=== PATIENT | male | born 1945 ===

== ENCOUNTER 2017-03-24 17:52 | Inpatient (IN) | payer SELFPAY ==
[2017-03-24 17:56] VITALS: BMI 25.8
[2017-03-24] MEDS ORDERED: ASPIRIN 81 MG CHEWABLE TABLETS PO ONE (18:07)
[2017-03-24] MEDS ORDERED: ASPIRIN 81 MG CHEWABLE TABLETS ONE (18:25)
[2017-03-24 18:38] LABS: BASOPHIL 1.6 % (0-2.0); EOSINOPHIL 1.9 % (0-4.5); MCH 22.4 pg (25.7-33.7); MCHC 30.7 g/dl (32.0-35.9); MEAN CELL VOLUME 72.8 fl (80-96); MEAN PLT VOLUME 7.6 fl (7.5-11.1); NEUTROPHILS 71.1 % (42.8-82.8); PLATELET COUNT 372 K/MM3 (134-434); RDW 17.5 % (11.9-15.9); WHITE BLOOD COUNT 7.7 K/mm3 (4.0-10.0)
[2017-03-24 19:03] LABS: ALBUMIN 3.7 g/dl (3.4-5.0); ANION GAP 11 (8-16); BILIRUBIN,TOTAL 0.7 mg/dL (0.2-1.0); CALCIUM 8.9 mg/dL (8.5-10.1); CO2 24 mmol/L (21-32); CREATININE 1.4 mg/dL (0.7-1.3); GLUCOSE,RANDOM 145 mg/dL (74-106); MAGNESIUM 2.3 mg/dL (1.8-2.4); SGOT/AST 17 U/L (15-37); SGPT/ALT 26 U/L (12-78); TOT PROT 7.5 g/dl (6.4-8.2)
[2017-03-24 19:06] LABS: ALK PHOS 121 U/L (45-117); CPK 173 IU/L (39-308); TROPONIN I 0.16 ng/ml (0.00-0.05)
[2017-03-24 19:20] LABS: INR 1.13 (0.82-1.09); PROTHROMBIN TIME (PATIENT) 12.5 SEC (9.98-11.88)
--- NOTE | 2017-03-24 19:54 | PDOC ---
History of Present Illness <Tevin Mathur - Last Filed: 03/24/17 21:36> - General History Source: Patient Exam Limitations: No Limitations <Guilherme Lo - Last Filed: 03/24/17 22:01> - General Chief Complaint: Chest Pain Stated Complaint: CHEST PAIN Time Seen by Provider: 03/24/17 18:47 - History of Present Illness Initial Comments: 03/24/17 20:03 71y M hx of htn, hl, presents with chest pain. Pt notes the chest pain has heraclio intermittent for the past week, seems to be worse in the evening and when he is abmulating. there is associated sob, denies any n/v, diaphoresis. no associated hemoptysis, leg swelling, numbness/tingling/weakness. pt went to his pmd today who sent him to the ED for evaluation. no prior cardiac ihstory. pt notes his pain is mild currently but has been much worse. (Guilherme Lo) Past History <Tevin Mathur - Last Filed: 03/24/17 21:36> - Past Medical History Diabetes: Yes HTN: Yes Hypercholesterolemia: Yes - Suicide/Smoking/Psychosocial Hx Smoking History: Never smoked Hx Alcohol Use: No Drug/Substance Use Hx: No Substance Use Type: None <Guilherme Lo - Last Filed: 03/24/17 22:01> - Past Medical History Allergies/Adverse Reactions: Allergies Allergy/AdvReac Type Severity Reaction Status Date / Time No Known Allergies Allergy Verified 03/24/17 17:54 Home Medications: Ambulatory Orders Ibuprofen [Advil -] 200 mg PO BID 03/24/17 Metformin HCl 500 mg PO BID 03/24/17 Vitamin B Complex [B Complex] 1 each PO DAILY 03/24/17 Review of Systems <Tevin Mathur - Last Filed: 03/24/17 21:36> - Review of Systems Able to Perform ROS?: Yes <Guilherme Lo - Last Filed: 03/24/17 22:01> - Review of Systems Comments:: 03/24/17 20:05 Constitutional - no reported Fever, Chills, HEENT: no reported vision changes, sore throat Respiratory: no reported cough, sob, hemoptysis Cardiac: +chest pain, no reported palpitations, light headedness, leg swelling Abd/GI: no reported abd pain, nausea, vomiting, blood per rectum, melena, diarrhea : no reported dysuria, frequency, discharge Musculskelatal - no reported back pain, joint swelling skin - no reported bruising, erythema, rash neurological: no reported headache, numbness, focal weakness, tingling, ataxia, hematologic: no reported anemia, easy bruising, easy bleeding (Wally,Guilherme) *Physical Exam <Tevin Mathur - Last Filed: 03/24/17 21:36> <Guilherme Lo - Last Filed: 03/24/17 22:01> - Vital Signs Last Vital Signs Temp Pulse Resp BP Pulse Ox 98.4 F 84 16 176/93 100 03/24/17 21:07 03/24/17 21:07 03/24/17 21:07 03/24/17 21:07 03/24/17 21:07 - Physical Exam Comments: 03/24/17 20:06 GENERAL: The patient is awake, alert, and fully oriented, Nontoxic - in no acute distress. HEAD: Normocephalic, atraumatic. EYES: extraocular movements intact, sclera anicteric, conjunctiva clear. ENT: Normal voice, Moist mucous membranes. NECK: Normal range of motion, supple LUNGS: Breath sounds equal, clear to auscultation bilaterally. No wheezes, no rhonchi, no rales. HEART: Regular rate and rhythm, normal S1 and S2 without murmur, rub or gallop. ABDOMEN: Soft, nontender, normoactive bowel sounds. No guarding, no rebound. No CVA tenderness EXTREMITIES: Normal range of motion, no edema. No clubbing or cyanosis. No cords, erythema, or tenderness. NEUROLOGICAL: No facial assymetry, Normal speech, PSYCH: Normal mood, normal affect. SKIN: Warm, Dry, normal turgor, (Wally,Guilherme) Heart Score/ECG Review <Tevin Mathur - Last Filed: 03/24/17 21:36> <Guilherme Lo - Last Filed: 03/24/17 22:01> - ECG Impressions Comment:: 03/24/17 20:07 Twelve-lead EKG was performed and reviewed by me. There is normal sinus rhythm wth a rate of 104 The axis is normal. The intervals are normal. ST depressions in the lateral leads Q waves in lead 3 No old EKGs for comparison (WallyGuilherme) ED Treatment Course - LABORATORY CBC & Chemistry Diagram: 03/24/17 18:13 03/24/17 18:13 <MathurTevin - Last Filed: 03/24/17 21:36> - LABORATORY CBC & Chemistry Diagram: 03/24/17 18:13 03/24/17 18:13 <WallyGuilherme - Last Filed: 03/24/17 22:01> - ADDITIONAL ORDERS Additional order review: Laboratory Results 03/24/17 03/24/17 18:13 18:13 PT with INR 12.50 H INR 1.13 Sodium 138 Potassium 4.2 Chloride 103 Carbon Dioxide 24 Anion Gap 11 BUN 16 Creatinine 1.4 H Creat Clearance w eGFR 49.96 Random Glucose 145 H Calcium 8.9 Magnesium 2.3 Total Bilirubin 0.7 AST 17 ALT 26 Alkaline Phosphatase 121 H Creatine Kinase 173 Creatine Kinase Index 2.7 CK-MB (CK-2) 4.674 H Troponin I 0.16 H Total Protein 7.5 Albumin 3.7 03/24/17 18:13 RBC 4.20 MCV 72.8 L MCHC 30.7 L RDW 17.5 H MPV 7.6 Neutrophils % 71.1 Lymphocytes % 16.6 Monocytes % 8.8 Eosinophils % 1.9 Basophils % 1.6 - RADIOLOGY Radiology Studies Ordered: Category Date Time Status CHEST PA & LAT [RAD] Stat Radiology 03/24/17 18:07 Taken - Medications Given in the ED: ED Medications Discontinued Medications Generic Name Dose Route Start Last Admin Trade Name Pamela PRN Reason Stop Dose Admin Aspirin 162 mg 03/24/17 18:07 03/24/17 18:21 Asa - PO 03/24/17 18:08 162 mg ONCE ONE Administration Heparin Sodium (Porcine) 5,000 unit 03/24/17 20:50 03/24/17 21:20 Heparin - IVPUSH 03/24/17 20:51 5,000 unit ONCE ONE Administration Metoprolol Tartrate 25 mg 03/24/17 20:47 03/24/17 21:25 Lopressor - PO 03/24/17 20:48 25 mg ONCE ONE Administration Nitroglycerin 0.4 mg 03/24/17 20:02 03/24/17 21:25 Nitrostat - SL 03/24/17 20:03 0.4 mg ONCE ONE Administration Medical Decision Making <Tevin Mathur - Last Filed: 03/24/17 21:36> <Guilherme Lo - Last Filed: 03/24/17 22:01> - Medical Decision Making 03/24/17 20:[address] Enriquez at 8:[address] Gan returned the call at 8:10 pm 03/24/17 20:[address] Carver at 8:40 pm Page returned by Dr. Carver at 8:45 pm 03/24/17 21:36 Dr. Price paged at 9:10 pm Page returned at 9:17 pm (Tevin Mathur) 03/24/17 20:08 concern for acs adri wit hekg changes pt given asa wlil give ntg will admit for further management labs noted for trop of 0.16 03/24/17 20:[address] carver requested heparinzation, metoprolol 25mg and icu admission for ACS will trend trops case dw dr. huang agree with management and admission Case discussed in detail with admitting physician including history, physical exam and ancillary studies. Admitting physician has assumed care for the patient, will follow all pending diagnostics and will complete the evaluation and treatment. 03/24/17 22:[address] Lynette Soriano, requests admission under his service (Guilherme Lo) *DC/Admit/Observation/Transfer <Tevin Mathur - Last Filed: 03/24/17 21:36> - Discharge Dispostion Admit: Yes <Guilherme Lo - Last Filed: 03/24/17 22:01> Diagnosis at time of Disposition: Unstable angina - Discharge Dispostion Condition at time of disposition: Guarded - Referrals
[2017-03-24] MEDS ORDERED: NITROGLYCERIN SUBLINGUAL 1/150 0.4 MG TAB SL ONE (20:02)
[2017-03-24] MEDS ORDERED: METOPROLOL TARTRATE 25 MG TABLET (FP) PO ONE (20:47)
[2017-03-24] MEDS ORDERED: HEPARIN NA (PORCINE) 5,000 UNITS/ML 1ML VIAL IVPUSH ONE (20:50)
[2017-03-24] MEDS ORDERED: HEPARIN INFUSION - 500 ML IVPB SCH (21:00)
[2017-03-24] MEDS ORDERED: HEPARIN NA (PORCINE) 5,000 UNITS/ML 1ML VIAL ONE (21:06)
[2017-03-24] MEDS ORDERED: HEPARIN INFUSION - 500 ML IVPB ONE (21:06)
[2017-03-24] MEDS ORDERED: METOPROLOL TARTRATE 25 MG TABLET (FP) ONE (21:06)
[2017-03-24] MEDS ORDERED: NITROGLYCERIN SUBLINGUAL 1/150 0.4 MG TAB ONE (21:22)
[2017-03-25 00:37] LABS: TROPONIN I 0.24 ng/ml (0.00-0.05)
[2017-03-25 02:59] LABS: INR 1.19 (0.82-1.09); PROTHROMBIN TIME (PATIENT) 13.1 SEC (9.98-11.88)
[2017-03-25 03:03] LABS: ACTIVATED PTT 79.6 SECONDS (26.9-34.4)
[2017-03-25 06:24] LABS: BASOPHIL 1.3 % (0-2.0); EOSINOPHIL 3.3 % (0-4.5); MCH 22.5 pg (25.7-33.7); MCHC 30.9 g/dl (32.0-35.9); MEAN CELL VOLUME 72.9 fl (80-96); MEAN PLT VOLUME 7.5 fl (7.5-11.1); NEUTROPHILS 63.3 % (42.8-82.8); PLATELET COUNT 382 K/MM3 (134-434); RDW 17.4 % (11.9-15.9)
[2017-03-25 07:38] LABS: ALBUMIN 3.3 g/dl (3.4-5.0); ANION GAP 10 (8-16); BILIRUBIN,TOTAL 0.6 mg/dL (0.2-1.0); CALCIUM 8.7 mg/dL (8.5-10.1); CHOLESTEROL 150 mg/dL (50-200); CO2 25 mmol/L (21-32); CREATININE 1.3 mg/dL (0.7-1.3); GLUCOSE,RANDOM 162 mg/dL (74-106); SGOT/AST 16 U/L (15-37); SGPT/ALT 24 U/L (12-78); TOT PROT 6.8 g/dl (6.4-8.2)
[2017-03-25 07:53] LABS: ALK PHOS 107 U/L (45-117)
--- NOTE | 2017-03-25 08:01 | CONS ---
DATE OF CONSULTATION: 03/24/2017 TIME OF CONSULTATION: 10:45 to 11:45 p.m. REQUESTED BY: Marianne Soriano MD CHIEF COMPLAINT: 1. Chest pain. 2. Shortness of breath. 3. Easy fatigability. HISTORY OF PRESENT ILLNESS: The patient is a 71-year-old [place] gentleman with longstanding history of diabetes mellitus, hypertension. hypercholesterolemia. Patient states approximately 8 days ago he woke up at 4 a.m. from a deep sleep with severe anterior pressure-like chest discomfort accompanied by diaphoresis, severe dyspnea, and the pain radiated to the left arm and interscapular area. States that he continued to have the symptoms for the next 20 to 30 minutes. No history of palpitations, he felt lightheaded, no history of presyncope or syncope. Since the initial episode, he continues to have chest discomfort on a daily basis accompanied by dyspnea and at times diaphoresis. Patient states that the pain occurs both at rest and with minimal exertion. He also complains of extreme fatigue. He states that he is unable to even walk to the bathroom without experiencing shortness of breath. Today, he had several episodes of chest discomfort and decided to come to the emergency room. No history of cough or expectoration. He does have intermittent pedal edema that usually occurs when he is standing for a prolonged period of time or at the end of the day. On questioning, patient states that he has had mild chest discomfort for 2 to 3 years usually associated with exertion, relieved by rest, and at times would radiate to the left arm and back. Pains were always accompanied by dyspnea which became progressively more pronounced walking short distances. He was unable to walk more than half a block prior to this present episode. Patient also complains of exertional claudication for several years but recently has noted that he is unable to walk even half a block without experiencing pain involving both lower extremities. The pain is more pronounced in the left lower extremity and he has had at times discomfort at rest. Patient admits to poor dietary and medical compliance. PAST HISTORY: As mentioned in the present illness. SURGICAL HISTORY: None. SOCIAL HISTORY: Is , has 1 daughter, and apparently works at a [employer]. Does not smoke or drink alcohol. Drinks tea and coffee. FAMILY HISTORY: Father in his mid 80s of an unknown cause. Mother in her early 80s and cause of is not available. She was blind. He had 2 brothers, an older and a younger. Both of them are . The younger brother suddenly. He has 1 sister who apparently also has visual problems. ALLERGIES: None reported. MEDICATIONS: None recorded prior to admission. CURRENT MEDICATIONS: 1. Aspirin 162 mg. 2. Nitrostat 0.4 mg sublingually. 3. Metoprolol tartrate 25 mg single dose. 4. Heparin as per protocol. REVIEW OF SYSTEMS:Constitutional: No history of chills, fever or night sweats. No history of unintentional weight loss. HEENT: History of occasional headaches, no history of diplopia, blurred vision, no history of hoarseness, epistaxis. No history of tinnitus or deafness reported. Cardiovascular: See history of present illness. Respiratory: No history of cough, expectoration or hemoptysis. Denies having tuberculosis. Gastrointestinal: Denies having nausea, vomiting, melena or hematemesis. No history of abdominal pain or discomfort reported. No history of change in bowel habits. Neurological: No history of seizures, syncope or focal weakness. No history of dizziness. Musculoskeletal: History of pain involving the left knee. No history of myalgias. Endocrine: See history of present illness. No history of polyuria or polydipsia. No history of intolerance to cold or warm weather. Genitourinary: History of intermittent difficulty in micturition, recent history of nocturia, no history of hematuria, history of urgency. Hematological: No history of known anemia, ecchymosis or bleeding. PHYSICAL EXAMINATION:General: A 71-year-old gentleman was in no acute distress, slight pallor, no cyanosis, clubbing or jaundice. HEENT: Normocephalic, atraumatic, pupils were equal, reacting to light and accommodation, no scleral icterus, unable to evaluate for arcus senilis, no xanthelasmas. Poor dentition. Neck: Supple, no jugular venous distention, positive hepatojugular reflux 1 to 2 cm, nonpulsatile neck veins, carotids were 2+, upstrokes were normal, no bruits were heard and no thyromegaly was present. Heart: PMI was in the 5th intercostal space, no heaves or thrills, heart sounds were distant, a faint grade 1/6 apical systolic murmur. An S4 gallop along the left sternal border and apex. No diastolic murmur was heard. Lungs: Fine crepitations at the right base. Chest: Normal AP diameter, expansion was symmetrical. Abdomen: Soft, protuberant/obese, nontender. No hepatosplenomegaly or palpable masses were appreciated. Bowel sounds were present. No bruits were heard. Extremities: No calf tenderness or dependent edema. Right femoral pulse was 1 to 2+. Left was not palpable. Right popliteal pulses were 1+. Left was not palpable. Both dorsalis pedis and posterior tibial pulses were not palpable. LABORATORY DATA: CBC: WBC count 7700, hemoglobin was 9.4 g/dL, microcytic cell indices, platelet count 372,000, normal differential. Chemistry: Sodium 138, potassium 4.2, chloride 103, CO2 24 mM/L, BUN was 16, creatinine was 1.4 mg/dL. Random glucose was 145 mg/dL. Calcium was 8.9 mg/dL. Alkaline phosphatase was elevated at 121. CK was 173. Troponin was 0.16. BNP was pending. X-ray chest is pending. ECG, March 24, 2017, at 1850 hours: Sinus tachycardia, intraatrial conduction abnormality, embryonic Q wave in V2, possibility of an anteroseptal wall AL of indeterminate age cannot be excluded. Flattened T waves in V3 with ST segment depressions in V4 to V6. There were slight ST segment depressions also noted in lead I and T wave inversions in aVL. IMPRESSION: 1. Clinical presentation consistent with coronary artery disease, acute coronary syndrome. 2. Clinical presentation consistent with left ventricular failure. 3. Peripheral arterial disease with exertional claudication on limited activity. 4. Diabetes mellitus. 5. History of hypertension. 6. History of hypercholesterolemia. 7. Microcytic anemia, etiology to be determined. 8. Suspect persistent sinus tachycardia. RECOMMENDATIONS: 1. Increase dose of beta blockers. If heart rate remains elevated, would suggest IV metoprolol. 2. X-ray chest is pending. Patient will most likely require IV diuretic in view of clinical presentation. 3. Continue IV heparin. 4. IV nitroglycerin. 5. Concur with . 6. Consider addition of Plavix or Effient. 7. High-dose atorvastatin, example 80 mg. 8. Evaluation of anemia. 9. Stool guaiac. 10. Evaluation of peripheral arterial disease when patient is stable. 11. Serial EKGs. 12. Serial troponin and CK levels. 13. Patient is awaiting admission to CCU. Echocardiogram. 14. T3, T4, TSH. PROGNOSIS: Critical. Thank you for your referral. Yours sincerely. NAKUL GOSS M.D. [id number]
[2017-03-25 08:11] LABS: CPK 133 IU/L (39-308)
[2017-03-25] MEDS ORDERED: FUROSEMIDE 40 MG/4 ML INJECTABLE VIAL IVPB ONE (08:46)
--- NOTE | 2017-03-25 08:54 | HP ---
Admitting History and Physical - Primary Care Physician PCP: Lexi Enriquez - Admission Chief Complaint: Exertional chest Pain and LAU for 7 days History of Present Illness: 71 yrs old mna with long standing DM non compliant last visit to MD 3 yrs ago present with 7 days H/O chest pain that is dull, left sided with SOB, LAU and frequent episodes of PND, patient says his ET has reduced to few yard, symptoms started after an episode of 8/10, presure like chesyt pain lasted > 2 hrs 7 days ago while sleeping, pain radiates to inter-sacapular are with perspiration and palpitation, patient stayed home, today decided to come PMD office ther clinical examination was consisted with new onset decompensation CHF and unstable angina, refereed to Ed for further evaluation, no c/o fever, chills, nausea or vomiting, denies any syncope or presyncope symptoms. History Source: Patient Limitations to Obtaining History: No Limitations - Past Medical History Cardiovascular: Yes: HTN Endocrine: Yes: Diabetes Insipidus - Smoking History Smoking history: Never smoked - Alcohol/Substance Use Hx Alcohol Use: No Home Medications - Allergies Allergies/Adverse Reactions: Allergies Allergy/AdvReac Type Severity Reaction Status Date / Time No Known Allergies Allergy Verified 03/24/17 17:54 - Home Medications Home Medications: Ambulatory Orders Ibuprofen [Advil -] 200 mg PO BID 03/24/17 Metformin HCl 500 mg PO BID 03/24/17 Vitamin B Complex [B Complex] 1 each PO DAILY 03/24/17 Family Disease History - Family Disease History Family History: Unremarkable Review of Systems - Review of Systems Constitutional: reports: No Symptoms HENT: reports: No Symptoms Neck: reports: No Symptoms Cardiovascular: reports: Chest Pain, Palpitations, Shortness of Breath Respiratory: reports: Cough, Exercise Intolerance, Orthopnea Gastrointestinal: reports: No Symptoms Neurological: reports: No Symptoms Endocrine: reports: No Symptoms Physical Examination Vital Signs: Vital Signs Temperature 98.0 F 03/25/17 07:00 Pulse Rate 92 H 03/25/17 07:00 Respiratory Rate 20 03/25/17 07:00 Blood Pressure 162/88 03/25/17 07:00 O2 Sat by Pulse Oximetry (%) 98 03/25/17 07:05 Constitutional: Yes: Well Nourished Eyes: Yes: WNL, Conjunctiva Clear, EOM Intact HENT: Yes: WNL, Atraumatic, Normocephalic. No: Nasal Congestion Neck: Yes: Supple, Trachea Midline Cardiovascular: Yes: Tachycardia, JVD, S1, S2. No: Murmur Respiratory: Yes: Regular, Rales, SOB Gastrointestinal: Yes: Normal Bowel Sounds, Soft Musculoskeletal: Yes: WNL. No: Back Pain Extremities: Yes: WNL. No: Calf Tenderness Edema: LUE: Trace, RUE: Trace Peripheral Pulses WNL: Yes Neurological: Yes: WNL, Alert, Oriented ...Motor Strength: WNL, LUE, LLE, RUE, RLE Psychiatric: Yes: WNL, Alert, Oriented Labs: CBC, BMP 03/25/17 06:15 03/25/17 06:15 Abnormal Lab Results 03/24/17 03/24/17 03/24/17 18:13 18:13 18:13 RBC Hgb 9.4 L Hct 30.6 L MCV 72.8 L MCH 22.4 L MCHC 30.7 L RDW 17.5 H Monocytes % PT with INR 12.50 H INR PTT (Actin FS) Creatinine 1.4 H Random Glucose 145 H Alkaline Phosphatase 121 H CK-MB (CK-2) 4.674 H Troponin I 0.16 H B-Natriuretic Peptide Albumin 03/24/17 03/24/17 03/25/17 23:20 23:20 02:38 RBC Hgb Hct MCV MCH MCHC RDW Monocytes % PT with INR 13.10 H INR 1.19 H PTT (Actin FS) 79.6 H Creatinine Random Glucose Alkaline Phosphatase CK-MB (CK-2) Troponin I 0.24 H D B-Natriuretic Peptide 4731.05 H Albumin 03/25/17 03/25/17 06:15 06:15 RBC 3.91 L Hgb 8.8 L Hct 28.5 L MCV 72.9 L MCH 22.5 L MCHC 30.9 L RDW 17.4 H Monocytes % 10.8 H PT with INR INR PTT (Actin FS) Creatinine Random Glucose 162 H Alkaline Phosphatase CK-MB (CK-2) Troponin I 0.20 H B-Natriuretic Peptide 3705.74 H Albumin 3.3 L Imaging - Results X-ray: Report Reviewed (Minimal congestion) Problem List - Problems (1) Unstable angina Assessment/Plan: Present with chest pain at rest, new onset, St T changes and elevated Trop F/U serial, CE, ECHO, ASA , Statin B Blockers, Cardiology consult, telemonitoring, subsequent w/u as per cardiology recommendation. cont Heparin drip. Code(s): I20.0 - UNSTABLE ANGINA (2) New onset of congestive heart failure Assessment/Plan: Patient present with new onset LAU and PND with elevated BNP and Pulmonary congestion after chest pain episode most likely CHF seconder to Ischemic heart disease, IV lasix 40 mg IVSS once F/U BMP BID, ECHO optimix=ze B Blockers and ACEI will add Ramipril 2.5 mg gradually optimize to max and Metoprolol 25 mg BID, switch to Po lasix in am. Code(s): I50.9 - HEART FAILURE, UNSPECIFIED (3) T2DM (type 2 diabetes mellitus) Assessment/Plan: Uncontrolled T2DM will add Lispro coverage AC and HS and low dose Lantus Code(s): E11.9 - TYPE 2 DIABETES MELLITUS WITHOUT COMPLICATIONS Qualifiers: Diabetes mellitus complication status: with circulatory complication (4) Microcytic anemia Assessment/Plan: Stool occult blood -ve will F/U Iron Panel, B 12 serial H/H , considering hematuria, renal ultrasound to R/O RCC. Code(s): D50.9 - IRON DEFICIENCY ANEMIA, UNSPECIFIED (5) HTN (hypertension) Assessment/Plan: On B Blockers and ACEI optimize BP meds. Code(s): I10 - ESSENTIAL (PRIMARY) HYPERTENSION
[2017-03-25 08:58] LABS: THYROID STIMULATING HORMONE 3.66 uIU/ml (0.358-3.74)
[2017-03-25] MEDS ORDERED: FUROSEMIDE 40 MG/4 ML INJECTABLE VIAL ONE (09:13)
[2017-03-25 09:32] LABS: MAGNESIUM 2.3 mg/dL (1.8-2.4)
[2017-03-25] MEDS ORDERED: METOPROLOL TARTRATE 25 MG TABLET (FP) PO SCH (10:00)
[2017-03-25] MEDS ORDERED: RAMIPRIL 2.5 MG CAPSULE (FP) PO SCH (10:00)
[2017-03-25] MEDS: PANTOPRAZOLE 40 MG TABLET (FP) PO SCH (11:22)
[2017-03-25] MEDS: ASPIRIN 81 MG CHEWABLE TABLETS PO SCH (11:22)
[2017-03-25 12:28] LABS: FERRITIN 13.038 ng/ml (16.4-293.9)
--- NOTE | 2017-03-25 15:12 | PN ---
Progress Note (short form) - Note Progress Note: S: 71 year old [place] male with known case of NIDDM, hypertension, hypercholesterolemia was admitted with recurring chest pains accompanied by dyspnea, diaphoresis, fatigue for the past 8 days (see consult). Workup disclosed patient had acute coronary syndrome with LV failure. He also has exertional claudication involving both lower extremities, left being worse than right. Currently, he denies any chest pain or discomfort. No history of dyspnea, PND, or orthopnea. Active Medications Generic Name Dose Route Start Last Admin Trade Name Frenikki PRN Reason Stop Dose Admin Aspirin 81 mg 03/25/17 10:00 03/25/17 11:22 Asa - PO 81 mg DAILY DOMINICK Administration Heparin Sodium/Dextrose 500 mls @ 20 mls/hr 03/24/17 21:00 03/25/17 11:23 Heparin Infusion - IVPB 1,100 units/hr TITR DOMINICK Titration Protocol 1,000 UNITS/HR Metoprolol Tartrate 25 mg 03/25/17 10:00 03/25/17 11:22 Lopressor - PO 25 mg BID DOMINICK Administration Pantoprazole Sodium 40 mg 03/25/17 10:00 03/25/17 11:22 Protonix - PO 40 mg DAILY DOMINICK Administration Ramipril 2.5 mg 03/25/17 10:00 03/25/17 11:21 Altace - PO 2.5 mg DAILY DOMINICK Administration O: 71 year old male was in no acute distress. No pallor, cyanosis, clubbing, or jaundice. Last Vital Signs Temp Pulse Resp BP Pulse Ox 97.7 F 79 22 136/73 98 03/25/17 14:18 03/25/17 14:18 03/25/17 14:18 03/25/17 14:18 03/25/17 14:18 NECK: Supple, no JVD, negative HJR, carotids were equal and upstrokes were normal, no thyromegaly appreciated. HEART: PMI was in the 5th intercostal space, no heaves or thrills, S1 and S2 were normal. Grade I/ apical systolic murmur. S4 gallop at the apex. LUNGS: Clear on auscultation bilaterally. ABDOMEN: Soft, nontender, no hepatosplenomegaly appreciated, and no palpable masses were felt. EXTREMITIES: No calf tenderness or dependent edema. Left femoral pulse is not palpable, right is 1-2+. Dorsalis pedis and posterior tibial pulses are not palpable. CBC, BMP 03/25/17 06:15 03/25/17 06:15 Laboratory Results - last 24 hr 03/24/17 03/24/17 03/24/17 18:13 18:13 18:13 WBC 7.7 RBC 4.20 Hgb 9.4 L Hct 30.6 L MCV 72.8 L MCH 22.4 L MCHC 30.7 L RDW 17.5 H Plt Count 372 MPV 7.6 Neutrophils % 71.1 Lymphocytes % 16.6 Monocytes % 8.8 Eosinophils % 1.9 Basophils % 1.6 PT with INR 12.50 H INR 1.13 PTT (Actin FS) Sodium 138 Potassium 4.2 Chloride 103 Carbon Dioxide 24 Anion Gap 11 BUN 16 Creatinine 1.4 H Creat Clearance w eGFR 49.96 Random Glucose 145 H Hemoglobin A1c % Calcium 8.9 Magnesium 2.3 Ferritin Total Bilirubin 0.7 AST 17 ALT 26 Alkaline Phosphatase 121 H Creatine Kinase 173 Creatine Kinase Index 2.7 CK-MB (CK-2) 4.674 H Troponin I 0.16 H B-Natriuretic Peptide Total Protein 7.5 Albumin 3.7 Triglycerides Cholesterol Total LDL Cholesterol HDL Cholesterol Vitamin B12 TSH Stool Occult Blood 03/24/17 03/24/17 03/25/17 23:20 23:20 02:38 WBC RBC Hgb Hct MCV MCH MCHC RDW Plt Count MPV Neutrophils % Lymphocytes % Monocytes % Eosinophils % Basophils % PT with INR 13.10 H INR 1.19 H PTT (Actin FS) 79.6 H Sodium Potassium Chloride Carbon Dioxide Anion Gap BUN Creatinine Creat Clearance w eGFR Random Glucose Hemoglobin A1c % Calcium Magnesium Ferritin Total Bilirubin AST ALT Alkaline Phosphatase Creatine Kinase 153 Creatine Kinase Index 2.2 CK-MB (CK-2) 3.393 Troponin I 0.24 H D B-Natriuretic Peptide 4731.05 H Cancelled Total Protein Albumin Triglycerides Cholesterol Total LDL Cholesterol HDL Cholesterol Vitamin B12 TSH Stool Occult Blood 03/25/17 03/25/17 03/25/17 06:15 06:15 06:15 WBC 7.0 RBC 3.91 L Hgb 8.8 L Hct 28.5 L MCV 72.9 L MCH 22.5 L MCHC 30.9 L RDW 17.4 H Plt Count 382 MPV 7.5 Neutrophils % 63.3 Lymphocytes % 21.3 D Monocytes % 10.8 H Eosinophils % 3.3 Basophils % 1.3 PT with INR INR PTT (Actin FS) Sodium 140 Potassium 4.1 Chloride 105 Carbon Dioxide 25 Anion Gap 10 BUN 18 Creatinine 1.3 Creat Clearance w eGFR 54.42 Random Glucose 162 H Hemoglobin A1c % 10.0 H Calcium 8.7 Magnesium 2.3 Ferritin 13.038 L Total Bilirubin 0.6 AST 16 ALT 24 Alkaline Phosphatase 107 Creatine Kinase 133 Creatine Kinase Index CK-MB (CK-2) Troponin I 0.20 H B-Natriuretic Peptide 3705.74 H Total Protein 6.8 Albumin 3.3 L Triglycerides 81 Cholesterol 150 Total LDL Cholesterol 94 HDL Cholesterol 44 Vitamin B12 251 TSH 3.66 Stool Occult Blood 03/25/17 03/25/17 03/25/17 06:15 10:48 11:35 WBC RBC Hgb Hct MCV MCH MCHC RDW Plt Count MPV Neutrophils % Lymphocytes % Monocytes % Eosinophils % Basophils % PT with INR INR PTT (Actin FS) 70.1 H Sodium Potassium Chloride Carbon Dioxide Anion Gap BUN Creatinine Creat Clearance w eGFR Random Glucose Hemoglobin A1c % Calcium Magnesium Ferritin Total Bilirubin AST ALT Alkaline Phosphatase Creatine Kinase Cancelled Creatine Kinase Index CK-MB (CK-2) Troponin I Cancelled B-Natriuretic Peptide Cancelled Total Protein Albumin Triglycerides Cholesterol Total LDL Cholesterol HDL Cholesterol Vitamin B12 TSH Stool Occult Blood Negative Impression: 1. Coronary artery disease, angina pectoris/ acute coronary syndrome 2. Acute left ventricular failure 3. Peripheral arterial disease 4. NIDDM, poorly controlled 5. History of hypercholesterolemia 6. Anemia, etiology to be determined Recommendations: 1. Titrate lopressor to 50 mg PO BID under close observation of heart rate and blood pressure 2. Evaluation of anemia. 3. Add atorvastatin 80 mg PO daily 4. Close follow up of CBC 5. Resume metformin or insulin coverage by sliding scale 6. Follow up CKMI 7. T3/T4/TSH 8. Stool guaiacs 9. Echocardiogram 10. Repeat ECG today and in AM 11. Patient could be transferred to telemetry if he remains stable Prognosis: Critical Documentation prepared by Dorothy Loza, acting as a medical care evaluation specialist for Woody Carver MD. Problem List - Problems (1) HTN (hypertension) Code(s): I10 - ESSENTIAL (PRIMARY) HYPERTENSION (2) Acute coronary syndrome Code(s): I24.9 - ACUTE ISCHEMIC HEART DISEASE, UNSPECIFIED (3) Left ventricular failure Code(s): I50.1 - LEFT VENTRICULAR FAILURE, UNSPECIFIED (4) Diabetes Code(s): E11.9 - TYPE 2 DIABETES MELLITUS WITHOUT COMPLICATIONS (5) Anemia Code(s): D64.9 - ANEMIA, UNSPECIFIED
[2017-03-25 16:03] LABS: TROPONIN I 0.19 ng/ml (0.00-0.05)
[2017-03-25] MEDS ORDERED: FLU VACCINE QUAD 60 MCG/0.5 ML (MDV 17-18) IM ONE (16:41)
[2017-03-25] MEDS ORDERED: PNEUMOC 13-VAL CONJ-DIP CRM/PF 0.5 ML DISP.SYRIN IM ONE (16:41)
[2017-03-25] MEDS ORDERED: HEPARIN NA (PORCINE) 5,000 UNITS/ML 1ML VIAL IVPUSH PRN ×2 (18:33)
[2017-03-25] MEDS: HEPARIN - 25,000 UNIT in SODIUM CHLORIDE 495 ML IV SCH (18:54)
--- NOTE | 2017-03-25 19:08 | EKG ---
Test Reason : Blood Pressure : / mmHG Vent. Rate : 104 BPM Atrial Rate : 104 BPM P-R Int : 146 ms QRS Dur : 082 ms QT Int : 324 ms P-R-T Axes : 049 024 133 degrees QTc Int : 426 ms SINUS TACHYCARDIA BASELINE ARTIFACT POSSIBLE LEFT ATRIAL ENLARGEMENT ABNORMAL ECG WHEN COMPARED WITH ECG OF 24-MAR-2017 18:05, NO SIGNIFICANT CHANGE WAS FOUND REPEAT EKG IF CLINICALLY INDICATED Confirmed by NAKUL GOSS MD ([id number] on 03/25/2017 7:08:19 PM Referred By: Confirmed By:NAKUL GOSS MD
[2017-03-25] MEDS: METOPROLOL TARTRATE 50 MG TABLET (FP) PO SCH (22:10)
[2017-03-25] MEDS: ATORVASTATIN CA 80 MG TABLET (FP) PO SCH (22:20)
[2017-03-26] MEDS: INSULIN SLIDING SCALE (NOVOLOG) 1 VIAL SQ SCH ×3 (06:13→17:02)
[2017-03-26 07:01] LABS: ALBUMIN 3.1 g/dl (3.4-5.0); ANION GAP 8 (8-16); BILIRUBIN,TOTAL 0.6 mg/dL (0.2-1.0); CALCIUM 8.5 mg/dL (8.5-10.1); CO2 27 mmol/L (21-32); CREATININE 1.4 mg/dL (0.7-1.3); GLUCOSE,RANDOM 159 mg/dL (74-106); SGOT/AST 15 U/L (15-37); SGPT/ALT 24 U/L (12-78); TOT PROT 6.5 g/dl (6.4-8.2)
[2017-03-26 07:02] LABS: ALK PHOS 105 U/L (45-117)
[2017-03-26 07:21] LABS: BASOPHIL 1.1 % (0-2.0); EOSINOPHIL 3.7 % (0-4.5); MCH 22.4 pg (25.7-33.7); MCHC 30.7 g/dl (32.0-35.9); MEAN CELL VOLUME 72.9 fl (80-96); NEUTROPHILS 63.8 % (42.8-82.8); PLATELET COUNT 357 K/MM3 (134-434); RDW 18.1 % (11.9-15.9)
[2017-03-26] MEDS: ASPIRIN 81 MG CHEWABLE TABLETS PO SCH (09:15)
[2017-03-26] MEDS: RAMIPRIL 5 MG CAPSULE (FP) PO SCH (09:15)
[2017-03-26] MEDS: METOPROLOL TARTRATE 50 MG TABLET (FP) PO SCH ×2 (09:15→21:49)
[2017-03-26] MEDS: PANTOPRAZOLE 40 MG TABLET (FP) PO SCH (09:15)
[2017-03-26 10:08] LABS: SERUM IRON 21 ug/dL (38-169); TOTAL IRON BINDING CAPACITY 420 ug/dL (250-450); UIBC 399 ug/dL (111-343)
--- NOTE | 2017-03-26 12:52 | PN ---
Progress Note, Physician Chief Complaint: Still c/o LAU, no hematuria, bleeding NH or melena, No C/P SOB or Chest pain feels improved History of Present Illness: 71 yrs old mna with long standing DM non compliant last visit to MD 3 yrs ago present with 7 days H/O chest pain that is dull, left sided with SOB, LAU and frequent episodes of PND, patient says his ET has reduced to few yard, symptoms started after an episode of 8/10, pressure like chest pain lasted > 2 hrs 7 days ago - Current Medication List Current Medications: Active Medications Aspirin (Asa -) 81 mg PO DAILY [facility] Last Admin: 03/26/17 09:15 Dose: 81 mg Atorvastatin Calcium (Lipitor -) 80 mg PO HS [facility] Last Admin: 03/25/17 22:20 Dose: 80 mg Heparin Sodium (Porcine) (Heparin -) 5,000 unit IVPUSH PRN PRN Heparin Sodium (Porcine) (Heparin -) 1,000 unit IVPUSH PRN PRN Heparin Sodium (Porcine) 25, (000 unit/ Sodium Chloride) 500 mls @ 20 mls/hr IV TITR DOMINICK; 1,000 UNIT/HR PRN Reason: Protocol Last Admin: 03/25/17 18:54 Dose: 20 mls/hr Insulin Aspart (Novolog Vial Sliding Scale -) 1 vial SQ TIDAC [facility] PRN Reason: Protocol Last Admin: 03/26/17 11:13 Dose: 4 units Metoprolol Tartrate (Lopressor -) 50 mg PO BID [facility] Last Admin: 03/26/17 09:15 Dose: 50 mg Pantoprazole Sodium (Protonix -) 40 mg PO DAILY [facility] Last Admin: 03/26/17 09:15 Dose: 40 mg Ramipril (Altace -) 5 mg PO DAILY [facility] Last Admin: 03/26/17 09:15 Dose: 5 mg - Objective Vital Signs: Vital Signs Temperature 98 F 03/26/17 07:12 Pulse Rate 77 03/26/17 07:12 Respiratory Rate 20 03/26/17 07:22 Blood Pressure 130/66 03/26/17 07:12 O2 Sat by Pulse Oximetry (%) 98 03/26/17 07:22 Constitutional: Yes: No Distress Eyes: Yes: Conjunctiva Clear, EOM Intact HENT: Yes: WNL. No: Drooling, Epistaxis, Hoarseness Neck: Yes: WNL, Supple, Trachea Midline Cardiovascular: Yes: WNL, Regular Rate and Rhythm, S1, S2. No: JVD, Murmur Respiratory: Yes: WNL, Regular, CTA Bilaterally Gastrointestinal: Yes: WNL, Normal Bowel Sounds, Soft Edema: No Peripheral Pulses: Right Radial: 1+, Left Doralis Pedis: 1+ Neurological: Yes: WNL, Alert, Oriented ...Motor Strength: WNL, LUE, LLE, RUE, RLE Labs: CBC, BMP 03/26/17 05:10 03/26/17 05:10 INR, PTT INR 1.19 (0.82-1.09) H 03/25/17 02:38 Problem List - Problems (1) Unstable angina Assessment/Plan: Present with chest pain at rest, new onset, St T changes and elevated Trop F/U serial, CE, ECHO, ASA , Statin B Blockers, Cardiology consult, telemonitoring, subsequent w/u as per cardiology recommendation. cont Heparin drip. Code(s): I20.0 - UNSTABLE ANGINA (2) New onset of congestive heart failure Assessment/Plan: Patient present with new onset LAU and PND with elevated BNP and Pulmonary congestion after chest pain episode most likely CHF seconder to Ischemic heart disease, IV lasix 40 mg IVSS once F/U BMP BID, ECHO optimize B Blockers and ACEI , Ramipril 5 mg gradually optimize to max and Metoprolol 50 mg BID, switch to Po lasix. Code(s): I50.9 - HEART FAILURE, UNSPECIFIED (3) T2DM (type 2 diabetes mellitus) Assessment/Plan: Uncontrolled T2DM will add Lispro coverage AC and HS and low dose Lantus Code(s): E11.9 - TYPE 2 DIABETES MELLITUS WITHOUT COMPLICATIONS Qualifiers: Diabetes mellitus complication status: with circulatory complication (4) Microcytic anemia Assessment/Plan: Stool occult blood -ve will F/U Iron Panel, B 12 serial H/H , considering hematuria, renal ultrasound to R/O RCC. Code(s): D50.9 - IRON DEFICIENCY ANEMIA, UNSPECIFIED (5) HTN (hypertension) Assessment/Plan: On B Blockers and ACEI optimize BP meds. Code(s): I10 - ESSENTIAL (PRIMARY) HYPERTENSION (6) Claudication of lower extremity Assessment/Plan: Lower extremity arterial Doppler to R/O PVD Code(s): I73.9 - PERIPHERAL VASCULAR DISEASE, UNSPECIFIED
[2017-03-26] MEDS ORDERED: FUROSEMIDE 40 MG/4 ML INJECTABLE VIAL IVPB ONE (13:10)
[2017-03-26] MEDS ORDERED: FUROSEMIDE 40 MG TABLET (FP) PO ONE (13:11)
[2017-03-26] MEDS ORDERED: MAGNESIUM HYDROX 2400MG/30ML ORAL SUSPENSION 30 ML CUP PO PRN (13:20)
[2017-03-26 13:51] LABS: MAGNESIUM 2.2 mg/dL (1.8-2.4)
--- NOTE | 2017-03-26 14:23 | PN ---
Progress Note (short form) - Note Progress Note: S: 71 year old [place] male with known case of hypertension NIDDM, peripheral neuropathy, admitted with CAD, angina pectoris, ACS, acute LV failure, H/O poor medical and dietary compliance. C/O mild dyspnea on minimal activity. No PND or orthopnea. No chest pain or discomfort. Current Medications: Aspirin (Asa -) 81 mg PO DAILY [facility] Last Admin: 03/26/17 09:15 Dose: 81 mg Atorvastatin Calcium (Lipitor -) 80 mg PO HS [facility] Last Admin: 03/25/17 22:20 Dose: 80 mg Ferrous Sulfate (Feosol -) 325 mg PO BID DOMINICK Furosemide (Lasix -) 20 mg PO BIDLASIX DOMINICK Heparin Sodium (Porcine) (Heparin -) 5,000 unit IVPUSH PRN PRN Heparin Sodium (Porcine) (Heparin -) 1,000 unit IVPUSH PRN PRN Heparin Sodium (Porcine) 25, (000 unit/ Sodium Chloride) 500 mls @ 20 mls/hr IV TITR DOMINICK; 1,000 UNIT/HR PRN Reason: Protocol Last Admin: 03/25/17 18:54 Dose: 20 mls/hr Insulin Aspart (Novolog Vial Sliding Scale -) 1 vial SQ TIDAC DOMINICK PRN Reason: Protocol Last Admin: 03/26/17 11:13 Dose: 4 units Insulin Detemir (Levemir Vial) 8 units SQ HS DOMINICK Magnesium Hydroxide (Milk Of Magnesia -) 30 ml PO PRN PRN PRN Reason: CONSTIPATION Metoprolol Tartrate (Lopressor -) 50 mg PO BID [facility] Last Admin: 03/26/17 09:15 Dose: 50 mg Pantoprazole Sodium (Protonix -) 40 mg PO DAILY [facility] Last Admin: 03/26/17 09:15 Dose: 40 mg Ramipril (Altace -) 5 mg PO DAILY [facility] Last Admin: 03/26/17 09:15 Dose: 5 mg O: 71 year old male was in no acute distress. Mild pallor, no cyanosis, clubbing , or jaundice. Vital Signs - 8 hr 03/26/17 03/26/17 07:12 07:22 Temperature 98 F Pulse Rate 74 Respiratory 20 20 Rate Blood Pressure 129/71 O2 Sat by Pulse 98 Oximetry (%) Intake & Output 03/23/17 03/24/17 03/25/17 03/26/17 23:59 23:59 23:59 23:59 Intake Total 250 1204 Balance 250 1204 Weight 175 lb 175 lb NECK: Supple, JVD at 30 degrees, +ve HJR, carotids were equal and upstrokes were normal, no thyromegaly appreciated. HEART: PMI was in the 5th intercostal space, no heaves or thrills, S1 and S2 were normal. Grade I/ apical systolic murmur. S4 gallop at the apex. LUNGS: Fine crepitations at the right base. ABDOMEN: Soft, nontender, no hepatosplenomegaly appreciated, and no palpable masses were felt. EXTREMITIES: No calf tenderness or dependent edema. Left femoral pulse is not palpable, right is 1-2+. Dorsalis pedis and posterior tibial pulses are not palpable. CBC, BMP 03/26/17 05:10 03/26/17 05:10 Troponin, BNP 03/25/17 15:15 Troponin I 0.19 H Impression: 1. Coronary artery disease, angina pectoris/ acute coronary syndrome. 2. Recurrence of LV failure 3. Peripheral arterial disease 4. NIDDM, poorly controlled 5. History of hypercholesterolemia 6. Anemia, etiology to be determined. Recommendations: 1. Concur with increasing dose of Lasix. 2. Work up to evaluate cause of anemia. 3. Add Imdur 30mg. po daily. 4. Close follow up of CBC 5. Bed side Echocardiogram. 7. T3/T4/TSH 8. Stool guaiacs 9. Echocardiogram. 10. F/U EKG. Prognosis: Guarded. Problem List - Problems (1) HTN (hypertension) Code(s): I10 - ESSENTIAL (PRIMARY) HYPERTENSION (2) Acute coronary syndrome Code(s): I24.9 - ACUTE ISCHEMIC HEART DISEASE, UNSPECIFIED (3) Left ventricular failure Code(s): I50.1 - LEFT VENTRICULAR FAILURE, UNSPECIFIED (4) Diabetes Code(s): E11.9 - TYPE 2 DIABETES MELLITUS WITHOUT COMPLICATIONS (5) Anemia Code(s): D64.9 - ANEMIA, UNSPECIFIED
[2017-03-26] MEDS: ISOSORBIDE MONONITRATE 30 MG TAB.SR.24H (FP) PO SCH (14:35)
[2017-03-26] MEDS: HEPARIN - 25,000 UNIT in SODIUM CHLORIDE 495 ML IV SCH (21:48)
[2017-03-26] MEDS: FERROUS SO4 325 MG TABLET (FP) PO SCH (21:49)
[2017-03-26] MEDS: ATORVASTATIN CA 80 MG TABLET (FP) PO SCH (21:49)
[2017-03-26] MEDS: INSULIN DETEMIR 100 UNITS/ML MDV SQ SCH (21:52)
[2017-03-27] MEDS: FUROSEMIDE 20 MG TABLET (FP) PO SCH ×2 (06:35→13:38)
[2017-03-27] MEDS: INSULIN SLIDING SCALE (NOVOLOG) 1 VIAL SQ SCH ×3 (06:36→16:16)
[2017-03-27 06:48] LABS: EOSINOPHIL 3.6 % (0-4.5); MCH 22.3 pg (25.7-33.7); MCHC 30.5 g/dl (32.0-35.9); MEAN CELL VOLUME 73.2 fl (80-96); MEAN PLT VOLUME 7.9 fl (7.5-11.1); NEUTROPHILS 58.4 % (42.8-82.8); PLATELET COUNT 336 K/MM3 (134-434); RDW 17.5 % (11.9-15.9); WHITE BLOOD COUNT 7.9 K/mm3 (4.0-10.0)
[2017-03-27 07:23] LABS: ANION GAP 8 (8-16); CALCIUM 9.1 mg/dL (8.5-10.1); CO2 28 mmol/L (21-32); CREATININE 1.3 mg/dL (0.7-1.3); GLUCOSE,RANDOM 130 mg/dL (74-106)
--- NOTE | 2017-03-27 09:04 | PN ---
Progress Note, Physician Chief Complaint: Admitted with chest pain No pain now History of Present Illness: [place] ruled out Dr Hess cardiology consult appreciated Echo cardiogram being done Anemia work ups ordered - Current Medication List Current Medications: Active Medications Aspirin (Asa -) 81 mg PO DAILY [facility] Last Admin: 03/26/17 09:15 Dose: 81 mg Atorvastatin Calcium (Lipitor -) 80 mg PO HS [facility] Last Admin: 03/26/17 21:49 Dose: 80 mg Ferrous Sulfate (Feosol -) 325 mg PO BID [facility] Last Admin: 03/26/17 21:49 Dose: 325 mg Furosemide (Lasix -) 20 mg PO BIDLASIX [facility] Last Admin: 03/27/17 06:35 Dose: 20 mg Heparin Sodium (Porcine) (Heparin -) 5,000 unit IVPUSH PRN PRN Heparin Sodium (Porcine) (Heparin -) 1,000 unit IVPUSH PRN PRN Heparin Sodium (Porcine) 25, (000 unit/ Sodium Chloride) 500 mls @ 20 mls/hr IV TITR DOMINICK; 1,000 UNIT/HR PRN Reason: Protocol Last Admin: 03/26/17 21:48 Dose: 22 mls/hr Insulin Aspart (Novolog Vial Sliding Scale -) 1 vial SQ TIDAC [facility] PRN Reason: Protocol Last Admin: 03/27/17 06:36 Dose: Not Given Insulin Detemir (Levemir Vial) 8 units SQ [facility] Last Admin: 03/26/17 21:52 Dose: 8 units Isosorbide Mononitrate (Imdur -) 30 mg PO DAILY [facility] Last Admin: 03/26/17 14:35 Dose: 30 mg Magnesium Hydroxide (Milk Of Magnesia -) 30 ml PO PRN PRN PRN Reason: CONSTIPATION Metoprolol Tartrate (Lopressor -) 50 mg PO BID [facility] Last Admin: 03/26/17 21:49 Dose: 50 mg Pantoprazole Sodium (Protonix -) 40 mg PO DAILY [facility] Last Admin: 03/26/17 09:15 Dose: 40 mg Ramipril (Altace -) 5 mg PO DAILY [facility] Last Admin: 03/26/17 09:15 Dose: 5 mg - Objective Vital Signs: Vital Signs Temperature 97.4 F L 03/27/17 05:48 Pulse Rate 74 03/27/17 05:48 Respiratory Rate 20 03/27/17 05:48 Blood Pressure 143/77 03/27/17 05:48 O2 Sat by Pulse Oximetry (%) 97 03/26/17 21:25 Constitutional: Yes: No Distress Eyes: Yes: WNL HENT: Yes: WNL Neck: Yes: WNL Cardiovascular: Yes: Regular Rate and Rhythm Respiratory: Yes: WNL Gastrointestinal: Yes: Normal Bowel Sounds ...Rectal Exam: Yes: Deferred Genitourinary: Yes: WNL Breast(s): Yes: WNL Musculoskeletal: Yes: WNL Extremities: Yes: WNL Edema: No Neurological: Yes: Alert Psychiatric: Yes: Alert Labs: CBC, BMP 03/27/17 06:20 03/27/17 06:20 INR, PTT INR 1.19 (0.82-1.09) H 03/25/17 02:38 Assessment/Plan Stool guaics ordered
[2017-03-27] MEDS: ISOSORBIDE MONONITRATE 30 MG TAB.SR.24H (FP) PO SCH (09:29)
[2017-03-27] MEDS: METOPROLOL TARTRATE 50 MG TABLET (FP) PO SCH ×2 (09:29→21:29)
[2017-03-27] MEDS: ASPIRIN 81 MG CHEWABLE TABLETS PO SCH (09:29)
[2017-03-27] MEDS: RAMIPRIL 5 MG CAPSULE (FP) PO SCH (09:29)
[2017-03-27] MEDS: PANTOPRAZOLE 40 MG TABLET (FP) PO SCH (09:29)
[2017-03-27] MEDS: FERROUS SO4 325 MG TABLET (FP) PO SCH ×2 (09:29→21:29)
[2017-03-27 09:58] LABS: TROPONIN I 0.11 ng/ml (0.00-0.05)
--- NOTE | 2017-03-27 12:39 | EKG ---
Test Reason : Blood Pressure : / mmHG Vent. Rate : 086 BPM Atrial Rate : 086 BPM P-R Int : 168 ms QRS Dur : 076 ms QT Int : 398 ms P-R-T Axes : 047 021 091 degrees QTc Int : 476 ms NORMAL SINUS RHYTHM POSSIBLE LEFT ATRIAL ENLARGEMENT PROLONGED QT ABNORMAL ECG WHEN COMPARED WITH ECG OF 25-MAR-2017 03:17, T WAVE INVERSION IS SEEN IN ANTERIOR LEAD Confirmed by KORI STAPLETON MD ([id number]) on 03/27/2017 12:39:07 PM Referred By: SHEIK MOTA DR Confirmed By:KORI STAPLETON MD
--- NOTE | 2017-03-27 21:10 | PN ---
Progress Note (short form) - Note Progress Note: S: 71 year old [place] male with known case of hypertension, admitted with CAD, angina pectoris, ACS, acute LV failure, NIDDM, poor medical and dietary compliance. pain free, no dyspnea or PND or orthpnea. Tolerating medications. Home Medication List Medication Instructions Recorded Confirmed Type Ibuprofen [Advil -] 200 mg PO BID 03/24/17 03/24/17 History Metformin HCl 500 mg PO BID 03/24/17 03/24/17 History Vitamin B Complex [B Complex] 1 each PO DAILY 03/24/17 03/24/17 History Active Medications Generic Name Dose Route Start Last Admin Trade Name Freq PRN Reason Stop Dose Admin Aspirin 81 mg 03/25/17 10:00 03/27/17 09:29 Asa - PO 81 mg DAILY [facility]IN[facility] Administration Atorvastatin Calcium 80 mg 03/25/17 22:00 03/26/17 21:49 Lipitor - PO 80 mg HS DOMINICK Administration Ferrous Sulfate 325 mg 03/26/17 22:00 03/27/17 09:29 Feosol - PO 325 mg BID DOMINICK Administration Furosemide 20 mg 03/27/17 06:00 03/27/17 13:38 Lasix - PO 20 mg BIDLASIX DOMINICK Administration Heparin Sodium (Porcine) 5,000 unit 03/25/17 18:33 Heparin - IVPUSH PRN PRN Heparin Sodium (Porcine) 1,000 unit 03/25/17 18:33 Heparin - IVPUSH PRN PRN Heparin Sodium (Porcine) 25, 500 mls @ 20 mls/hr 03/25/17 18:45 03/27/17 09:30 000 unit/ Sodium Chloride IV 1,100 unit/hr TITR [facility] Titration Protocol 1,000 UNIT/HR Insulin Aspart 1 vial 03/26/17 07:00 03/27/17 16:16 Novolog Vial Sliding Scale - SQ Not Given TIDAC [facility] Protocol Insulin Detemir 8 units 03/26/17 22:00 03/26/17 21:52 Levemir Vial SQ 8 units HS [facility]INICK Administration Isosorbide Mononitrate 30 mg 03/26/17 14:30 03/27/17 09:29 Imdur - PO 30 mg DAILY [facility] Administration Magnesium Hydroxide 30 ml 03/26/17 13:20 Milk Of Magnesia - PO PRN PRN CONSTIPATION Metoprolol Tartrate 50 mg 03/25/17 22:00 03/27/17 09:29 Lopressor - PO 50 mg BID [facility] Administration Pantoprazole Sodium 40 mg 03/25/17 10:00 03/27/17 09:29 Protonix - PO 40 mg DAILY [facility] Administration Ramipril 5 mg 03/25/17 21:42 03/27/17 09:29 Altace - PO 5 mg DAILY [facility] Administration O: 71 year old male was in no acute distress. Mild pallor, no cyanosis, clubbing , or jaundice. Vital Signs - 8 hr 03/27/17 03/27/17 14:00 18:00 Temperature 97.2 F L 97.7 F Pulse Rate 77 81 Respiratory 20 Rate Blood Pressure 150/63 136/62 NECK: Supple, JVD at 30 degrees, +ve HJR, carotids were equal and upstrokes were normal, no thyromegaly appreciated. HEART: PMI was in the 5th intercostal space, no heaves or thrills, S1 and S2 were normal. Grade I/ apical systolic murmur. S4 gallop at the apex. LUNGS: Fine crepitations at the right base. ABDOMEN: Soft, nontender, no hepatosplenomegaly appreciated, and no palpable masses were felt. EXTREMITIES: No calf tenderness or dependent edema. Left femoral pulse is not palpable, right is 1-2+. Dorsalis pedis and posterior tibial pulses are not palpable. CBC, BMP 03/27/17 06:20 03/27/17 06:20 EChocardiogram: Reported to have normal LV size and function, moderate pulmonary hypertenson, mild to moderate TR.(see detailed report). Impression: 1. Coronary artery disease, angina pectoris/ acute coronary syndrome. 2. S/P LV failure. 3. Peripheral arterial disease 4. NIDDM, poorly controlled 5. History of hypercholesterolemia 6. Anemia, etiology to be determined. Recommendations: 1. D/C heparin 2. Work up to evaluate cause of anemia. 3. Increase ambulation 4. Close follow up of CBC Prognosis: Guarded. Problem List - Problems (1) HTN (hypertension) Code(s): I10 - ESSENTIAL (PRIMARY) HYPERTENSION (2) Acute coronary syndrome Code(s): I24.9 - ACUTE ISCHEMIC HEART DISEASE, UNSPECIFIED (3) Left ventricular failure Code(s): I50.1 - LEFT VENTRICULAR FAILURE, UNSPECIFIED (4) Diabetes Code(s): E11.9 - TYPE 2 DIABETES MELLITUS WITHOUT COMPLICATIONS (5) Anemia Code(s): D64.9 - ANEMIA, UNSPECIFIED
[2017-03-27] MEDS: HEPARIN - 25,000 UNIT in SODIUM CHLORIDE 495 ML IV SCH (21:24)
[2017-03-27] MEDS: INSULIN DETEMIR 100 UNITS/ML MDV SQ SCH (21:29)
[2017-03-27] MEDS: ATORVASTATIN CA 80 MG TABLET (FP) PO SCH (21:29)
[2017-03-28] MEDS: INSULIN SLIDING SCALE (NOVOLOG) 1 VIAL SQ SCH ×2 (06:23→12:11)
[2017-03-28] MEDS: FUROSEMIDE 20 MG TABLET (FP) PO SCH ×2 (06:23→13:16)
[2017-03-28] MEDS: RAMIPRIL 5 MG CAPSULE (FP) PO SCH (09:19)
[2017-03-28] MEDS: ASPIRIN 81 MG CHEWABLE TABLETS PO SCH (09:19)
[2017-03-28] MEDS: FERROUS SO4 325 MG TABLET (FP) PO SCH (09:19)
[2017-03-28] MEDS: PANTOPRAZOLE 40 MG TABLET (FP) PO SCH (09:19)
[2017-03-28] MEDS: METOPROLOL TARTRATE 50 MG TABLET (FP) PO SCH (09:19)
[2017-03-28] MEDS: ISOSORBIDE MONONITRATE 30 MG TAB.SR.24H (FP) PO SCH (09:19)
--- NOTE | 2017-03-28 09:27 | PN ---
Progress Note, Physician Chief Complaint: Feels better History of Present Illness: Admitted with CHF Doing well Echo report pending Transfer to floor - Current Medication List Current Medications: Active Medications Aspirin (Asa -) 81 mg PO DAILY [facility] Last Admin: 03/28/17 09:19 Dose: 81 mg Atorvastatin Calcium (Lipitor -) 80 mg PO HS [facility] Last Admin: 03/27/17 21:29 Dose: 80 mg Ferrous Sulfate (Feosol -) 325 mg PO BID [facility] Last Admin: 03/28/17 09:19 Dose: 325 mg Furosemide (Lasix -) 20 mg PO BIDLASIX [facility] Last Admin: 03/28/17 06:23 Dose: 20 mg Insulin Aspart (Novolog Vial Sliding Scale -) 1 vial SQ TIDAC [facility] PRN Reason: Protocol Last Admin: 03/28/17 06:23 Dose: 2 units Insulin Detemir (Levemir Vial) 8 units SQ HS [facility] Last Admin: 03/27/17 21:29 Dose: 8 units Isosorbide Mononitrate (Imdur -) 30 mg PO DAILY [facility] Last Admin: 03/28/17 09:19 Dose: 30 mg Magnesium Hydroxide (Milk Of Magnesia -) 30 ml PO PRN PRN PRN Reason: CONSTIPATION Metoprolol Tartrate (Lopressor -) 50 mg PO BID [facility] Last Admin: 03/28/17 09:19 Dose: 50 mg Pantoprazole Sodium (Protonix -) 40 mg PO DAILY [facility] Last Admin: 03/28/17 09:19 Dose: 40 mg Ramipril (Altace -) 5 mg PO DAILY [facility] Last Admin: 03/28/17 09:19 Dose: 5 mg - Objective Vital Signs: Vital Signs Temperature 98.1 F 03/28/17 02:54 Pulse Rate 76 03/28/17 02:54 Respiratory Rate 20 03/28/17 02:54 Blood Pressure 137/63 03/28/17 02:54 O2 Sat by Pulse Oximetry (%) 95 03/27/17 21:00 Constitutional: Yes: No Distress Eyes: Yes: WNL HENT: Yes: WNL Neck: Yes: WNL Respiratory: Yes: Regular Gastrointestinal: Yes: WNL ...Rectal Exam: Yes: WNL Genitourinary: Yes: WNL Breast(s): Yes: WNL Musculoskeletal: Yes: WNL Edema: No Neurological: Yes: Alert ...Motor Strength: WNL Labs: CBC, BMP 03/27/17 06:20 03/27/17 06:20 INR, PTT INR 1.19 (0.82-1.09) H 03/25/17 02:38 - ....Imaging Ultrasound: Pending Assessment/Plan Transfer to floor
--- NOTE | 2017-03-28 09:36 | DS ---
Physical Examination Vital Signs: Vital Signs Temperature 98.1 F 03/28/17 02:54 Pulse Rate 76 03/28/17 02:54 Respiratory Rate 20 03/28/17 02:54 Blood Pressure 137/63 03/28/17 02:54 O2 Sat by Pulse Oximetry (%) 95 03/27/17 21:00 Findings/Remarks: Admitted with CHF On medical therapy ,feels better Also found to be anemic Constitutional: Yes: No Distress Eyes: Yes: WNL HENT: Yes: WNL Neck: Yes: WNL Cardiovascular: Yes: WNL Respiratory: Yes: WNL Gastrointestinal: Yes: WNL ...Rectal Exam: Yes: WNL Renal/: Yes: WNL Breast(s): Yes: WNL Musculoskeletal: Yes: Muscle Weakness Edema: No Integumentary: Yes: WNL Psychiatric: Yes: WNL Labs: CBC, BMP 03/27/17 06:20 03/27/17 06:20 Discharge Summary Reason For Visit: UNSTABLE ANGINA PECTORIS Current Active Problems Acute coronary syndrome (Acute) Anemia (Acute) Claudication of lower extremity (Acute) Diabetes (Acute) HTN (hypertension) (Acute) Left ventricular failure (Acute) Microcytic anemia (Acute) New onset of congestive heart failure (Acute) T2DM (type 2 diabetes mellitus) (Acute) Unstable angina (Acute) Condition: Guarded - Instructions Referrals: Lexi Enriquez MD [Primary Care Provider] - - Home Medications Comprehensive Discharge Medication List: Ambulatory Orders Ibuprofen [Advil -] 200 mg PO BID 03/24/17 Metformin HCl 500 mg PO BID 03/24/17 Vitamin B Complex [B Complex] 1 each PO DAILY 03/24/17
[2017-03-28 14:48] VITALS: BP 113/56; PULSE 68; TEMP 97.8
--- NOTE | 2017-03-31 09:22 | EKG ---
Test Reason : Blood Pressure : / mmHG Vent. Rate : 109 BPM Atrial Rate : 109 BPM P-R Int : 142 ms QRS Dur : 092 ms QT Int : 318 ms P-R-T Axes : 049 026 116 degrees QTc Int : 428 ms SINUS TACHYCARDIA POSSIBLE LEFT ATRIAL ENLARGEMENT ABNORMAL ECG NO PREVIOUS ECGS AVAILABLE Confirmed by BELL SCHAEFFER MD ([id number] on 03/31/2017 9:21:41 AM Referred By: Confirmed By:BELL SCHAEFFER MD
--- NOTE | 2017-04-04 22:57 | EKG ---
Test Reason : Blood Pressure : / mmHG Vent. Rate : 091 BPM Atrial Rate : 091 BPM P-R Int : 162 ms QRS Dur : 074 ms QT Int : 404 ms P-R-T Axes : 040 024 053 degrees QTc Int : 496 ms NORMAL SINUS RHYTHM BASELINE ARTIFACTS ABNORMAL ECG WHEN COMPARED WITH ECG OF 24-MAR-2017 18:50, NONSPECIFIC T WAVE ABNORMALITY NO LONGER EVIDENT IN INFERIOR LEADS QT HAS LENGTHENED REPEAT EKG IF CLINICALLY INDICATED Confirmed by NAKUL GOSS MD ([id number] on 04/04/2017 10:57:06 PM Referred By: Confirmed By:NAKUL GOSS MD
== END 2017-03-28 14:59 | disposition home or self-care (01) | DRG 194 ==
LOC: SUPCPDRO 17:52 → EDBD 17:52 → JER 17:52 → JERBED 20:40 → J4W 03-25 16:08
PROVIDERS: ADMIT Internal Medicine; ATTEND Internal Medicine
DX: I50.9 Heart failure, unspecified (principal); I25.110 Atherosclerotic heart disease of native coronary artery with unstable angina pectoris; I11.0 Hypertensive heart disease with heart failure; E78.5 Hyperlipidemia, unspecified; Z91.14 Patient's other noncompliance with medication regimen; I73.9 Peripheral vascular disease, unspecified; E11.65 Type 2 diabetes mellitus with hyperglycemia; G62.9 Polyneuropathy, unspecified; D50.9 Iron deficiency anemia, unspecified; Z79.84 Long term (current) use of oral hypoglycemic drugs
CPT/HCPCS: 36415; 71020-TC; 80048; 80053; 80061; 82272; 82553; 82607; 82728; 83036; 83540; 83550; 83721; 83735; 83880; 84443; 84484; 85025; 85610; 85730; 90670; 90688; 93005; 93010; 93306-TC; 99285-25; J1644